=== PATIENT | male | born 1990 | race American Indian/Alaskan Native ===

== ENCOUNTER 2021-07-06 17:43 | Emergency (ER) | payer SELFPAY ==
[2021-07-06 18:13] VITALS: BP 126/84
--- NOTE | 2021-07-06 20:33 | Emergency Department Report ---
- General Chief Complaint: Upper Respiratory Infection Stated Complaint: NASAL THROAT INFLAMATION PAIN IN HEAD Time Seen by Provider: 07/06/21 20:28 Source: patient Mode of arrival: Ambulatory Limitations: No Limitations - History of Present Illness Initial Comments: Patient is a 31-year-old male presents emergency room complaints of sinus pressure that began 10 days ago. He has associated congestion, rhinorrhea, right-sided headache. He states he mostly feels a pressure on the right side. Reports he had a subjective fever couple of days ago. He states he is also been having some throat discomfort. Patient states 2 days ago he began having right eye irritation and redness and drainage. He denies getting anything into the eye. He denies any contact lens use. He denies anyone else with the same symptoms. He denies any sick contacts. He denies any vision changes. He denies any recent travel. No past medical history. No allergies to medications. - Related Data Previous Rx's Medication Instructions Recorded Last Taken Type Amoxicillin/Potassium Clav 1 each PO BID 10 Days #20 tablet 07/06/21 Unknown Rx [Augmentin 875-125 Tablet] Fluticasone [Flonase] 1 spray NS QDAY #1 bottle 07/06/21 Unknown Rx Polymyxin B Sulf/Trimethoprim 1 drop OD Q3HR 7 Days #1 bottle 07/06/21 Unknown Rx [Polytrim Eye Drops 47696dympu/0.1%] guaiFENesin ER [Mucinex ER] 600 mg PO BID #14 tablet.er 07/06/21 Unknown Rx Allergies Allergy/AdvReac Type Severity Reaction Status Date / Time No Known Allergies Allergy Verified 07/06/21 18:12 ED Review of Systems ROS: Stated complaint: NASAL THROAT INFLAMATION PAIN IN HEAD Other details as noted in HPI Comment: All other systems reviewed and negative ED Past Medical Hx - Medications Home Medications: Home Medications Medication Instructions Recorded Confirmed Last Taken Type Amoxicillin/Potassium Clav 1 each PO BID 10 Days #20 tablet 07/06/21 Unknown Rx [Augmentin 875-125 Tablet] Fluticasone [Flonase] 1 spray NS QDAY #1 bottle 07/06/21 Unknown Rx Polymyxin B Sulf/Trimethoprim 1 drop OD Q3HR 7 Days #1 bottle 07/06/21 Unknown Rx [Polytrim Eye Drops 65538kewxl/0.1%] guaiFENesin ER [Mucinex ER] 600 mg PO BID #14 tablet.er 07/06/21 Unknown Rx ED Physical Exam - General Limitations: No Limitations General appearance: alert, in no apparent distress - Head Head exam: Present: atraumatic, normocephalic - Eye Eye exam: Present: PERRL, EOMI, conjunctival injection (right). Absent: periorbital swelling, periorbital tenderness Pupils: Present: normal accommodation - ENT ENT exam: Present: normal orophraynx, mucous membranes moist, TM's normal bilaterally, normal external ear exam, other (right maxillary and frontal sinus ttp, no left sided ttp) - Respiratory Respiratory exam: Present: normal lung sounds bilaterally. Absent: respiratory distress, wheezes, rales, rhonchi, stridor, chest wall tenderness, accessory muscle use, decreased breath sounds, prolonged expiratory - Cardiovascular Cardiovascular Exam: Present: regular rate, normal rhythm, normal heart sounds. Absent: systolic murmur, diastolic murmur, rubs, gallop - Neurological Exam Neurological exam: Present: alert, oriented X3 - Psychiatric Psychiatric exam: Present: normal affect, normal mood - Skin Skin exam: Present: warm, dry, intact ED Course Vital Signs 07/06/21 18:12 Temperature 98.3 F Pulse Rate 78 Respiratory 18 Rate Blood Pressure 126/84 O2 Sat by Pulse 98 Oximetry ED Medical Decision Making - Medical Decision Making Patient is a 31-year-old male presents emergency room complaints of sinus pressure that began 10 days ago. He has associated congestion, rhinorrhea, right-sided headache. He states he mostly feels a pressure on the right side. Reports he had a subjective fever couple of days ago. He states he is also been having some throat discomfort. Patient states 2 days ago he began having right eye irritation and redness and drainage. He denies getting anything into the eye. He denies any contact lens use. He denies anyone else with the same symptoms. He denies any sick contacts. He denies any vision changes. He denies any recent travel. No past medical history. No allergies to medica tions. Vitals are normal. On exam:right maxillary and frontal sinus ttp, no left sided ttp, right conjunctival injection, no periorbital edema or erythema, EOMI, PERRLA. Symptoms and examination appear most consistent with acute sinusitis and conjunctivitis. Given that patient symptoms have been ongoing for 10 days, antibiotic treatment is appropriate at this time. Patient given prescription for medications. Advised patient Please take medication as prescribed. Follow-up with your primary care doctor. Return to emergency room any new or worsening symptoms. Critical care attestation.: If time is entered above; I have spent that time in minutes in the direct care of this critically ill patient, excluding procedure time. ED Disposition Clinical Impression: Acute sinusitis Qualifiers: Sinusitis location: maxillary Recurrence: non-recurrent Qualified Code(s): J01.00 - Acute maxillary sinusitis, unspecified Conjunctivitis Qualifiers: Conjunctivitis type: acute Acute conjunctivitis type: unspecified Laterality: right Qualified Code(s): H10.31 - Unspecified acute conjunctivitis, right eye Disposition: TO HOME OR SELFCARE Is pt being admited?: No Does the pt Need Aspirin: No Condition: Stable Instructions: Bacterial Conjunctivitis, Adult, [id number], Sinusitis, Adult, [id number], Viral Conjunctivitis, Adult Additional Instructions: Please take medication as prescribed. Follow-up with your primary care doctor. Return to emergency room any new or worsening symptoms. Prescriptions: Amoxicillin/Potassium Clav [Augmentin 875-125 Tablet] 1 each PO BID 10 Days #20 tablet Fluticasone [Flonase] 1 spray NS QDAY #1 bottle guaiFENesin ER [Mucinex ER] 600 mg PO BID #14 tablet.er Polymyxin B Sulf/Trimethoprim [Polytrim Eye Drops 12313zsbjm/0.1%] 1 drop OD Q3HR 7 Days #1 bottle Referrals: GOOD CHANDLER MD [Staff Physician] - 2-3 Days [facility] [Provider Group] - 2-3 Days Time of Disposition: 20:32 Print Language: LUXEMBOURGER
== END 2021-07-06 20:40 | disposition home or self-care (01) ==
LOC: ED 17:43
DX: J01.90 Acute sinusitis, unspecified (principal); H10.9 Unspecified conjunctivitis; Z79.899 Other long term (current) drug therapy
CPT/HCPCS: 99282